=== PATIENT | female | born 1955 | race Two or more races ===

== ENCOUNTER → 2016-12-19 | Outpatient (CLI) | payer OTHER ==
--- NOTE | 2016-12-19 17:27 | RAD ---
Thyroid ultrasound, 12/19/2016: History: Thyroid nodule The right lobe of the gland measures 4.1 x 1.7 x 1.6 cm while left lobe of the gland measures 4.7 x 1.7 x 1.5 cm. The thyroid gland is mildly heterogeneous. There is a smooth oval-shaped nodule at the junction of the right lobe of the gland and isthmus measuring 12 x 10 x 6 mm. It is wider than tall. No internal calcifications are seen. It is probably a solid nodule. There is also an oval shaped 13 x 10 x 5 mm smooth nodule in the anterior aspect of the midportion of the right lobe of the gland. It is relatively isoechoic. It has a solid appearance. No internal calcifications are seen. It is wider than tall. There is a tiny 7 mm mildly hypoechoic nodule at the junction of the left lobe of the gland and the isthmus. Its margins are smooth. It is wider than tall. No calcifications are seen within this nodule. IMPRESSION: Multinodular thyroid gland as described above. The sonographic characteristics of the small nodules are nonspecific. No highly suspicious features are evident. Sonographic follow-up is suggested to establish stability.
== END | disposition home or self-care (01) ==
LOC: US 15:39
PROVIDERS: ATTEND Family Medicine
DX: E04.2 Nontoxic multinodular goiter (principal)
CPT/HCPCS: 76536

== ENCOUNTER → 2017-07-29 | Outpatient (CLI) | payer OTHER | END | disposition home or self-care (01) | LOC: US 11:06 | DX: E04.2 Nontoxic multinodular goiter (principal) | CPT/HCPCS: 76536 ==